=== PATIENT | female | born 1985 | race Two or more races ===

== ENCOUNTER 2024-02-09 14:30 | Emergency (ER) | payer OTHER ==
[~2024-02-09] VITALS: Ht 160 cm; Wt 72.6 kg
[2024-02-09] MEDS ORDERED: GUAIFENESIN/CODEINE 5 ML LIQUID UDC ONE (14:59)
[2024-02-09] MEDS: GUAIFENESIN/CODEINE 5 ML LIQUID UDC PO ONE (15:01)
[2024-02-09 15:11] LABS: BASOPHILS % (AUTO) 0.5 % (0.0-2.0); EOSINOPHILS # (AUTO) 0.5 K/uL (0.0-0.7); EOSINOPHILS % (AUTO) 6.7 % (0.0-7.0); HEMATOCRIT 34.2 % (31.2-41.9); HEMOGLOBIN 11.4 g/dL (10.9-14.3); LYMPHOCYTES # (AUTO) 0.7 K/uL (0.8-4.8); LYMPHOCYTES % (AUTO) 10.4 % (20.5-51.5); MEAN CORPUSCULAR HGB CONC 33 g/dL (32.3-35.6); MEAN CORPUSCULAR VOLUME 89.9 fL (75.5-95.3); MONOCYTES # (AUTO) 0.9 K/uL (0.1-1.30); NEUTROPHILS % (AUTO) 69.4 % (38.5-71.5); PLATELET COUNT (AUTO) 342 K/uL (179-408); RED BLOOD CELL COUNT(AUTO) 3.81 MIL/uL (3.63-4.92); RED CELL DISTRIBUTION WIDTH 13.5 % (12.3-17.7); WHITE BLOOD COUNT (AUTO) 7.2 K/uL (3.8-11.8)
[2024-02-09 15:13] LABS: DIFFERENTIAL COMMENT 1
[2024-02-09 15:16] LABS: CALCIUM 8.5 mg/dL (8.5-10.1); CREATININE 0.7 mg/dL (0.6-1.3); POTASSIUM 3.7 mmol/L (3.5-5.1)
[2024-02-09] MEDS ORDERED: MOME17SP BNOSTRILS (15:17)
[2024-02-09] MEDS ORDERED: [UNRECOGNIZED DRUG - CODE] PO (15:17)
[2024-02-09 15:27] VITALS: BP 128/65; TEMP 98.6; O2SAT 99
[2024-02-10] MEDS ORDERED: TRAM50TA2 PO (18:28)
[2024-02-10] MEDS ORDERED: DOXY100T2 PO (18:28)
[2024-02-10] MEDS ORDERED: METO-295 PO (18:28)
[2024-02-10] MEDS ORDERED: IBUP-1955 PO (18:28)
== END 2024-02-09 15:27 | disposition home or self-care (01) ==
LOC: ER 14:31
DX: J06.9 Acute upper respiratory infection, unspecified (principal); B97.89 Other viral agents as the cause of diseases classified elsewhere; Z79.51 Long term (current) use of inhaled steroids
CPT/HCPCS: 36415; 71045; 85025; A4606; A4663

== ENCOUNTER 2024-02-10 17:04 | Emergency (ER) | payer OTHER ==
[~2024-02-10] VITALS: Ht 152.4 cm; Wt 72.6 kg
[~2024-02-10 17:04] MED LIST: MOME17SP BNOSTRILS; [UNRECOGNIZED DRUG - CODE] PO
[2024-02-10 17:43] LABS: BASOPHILS % (AUTO) 0.3 % (0.0-2.0); DIFFERENTIAL COMMENT 1; EOSINOPHILS % (AUTO) 0.3 % (0.0-7.0); HEMATOCRIT 35.9 % (31.2-41.9); HEMOGLOBIN 12.1 g/dL (10.9-14.3); LYMPHOCYTES # (AUTO) 1.2 K/uL (0.8-4.8); MEAN CORPUSCULAR HEMOGLOBIN 30.1 uug (24.7-32.8); MEAN CORPUSCULAR HGB CONC 34 g/dL (32.3-35.6); MEAN CORPUSCULAR VOLUME 89.2 fL (75.5-95.3); MONOCYTES # (AUTO) 0.8 K/uL (0.1-1.30); MONOCYTES % (AUTO) 13.7 % (0.0-11.0); NEUTROPHILS # (AUTO) 3.9 K/uL (1.8-8.9); NEUTROPHILS % (AUTO) 65.7 % (38.5-71.5); PLATELET COUNT (AUTO) 293 K/uL (179-408); RED BLOOD CELL COUNT(AUTO) 4.02 MIL/uL (3.63-4.92); RED CELL DISTRIBUTION WIDTH 12.8 % (12.3-17.7)
[2024-02-10] MEDS: IV NORMAL SALINE 1000 ML BAG IV ONE (17:47)
[2024-02-10 17:48] LABS: CALCIUM 8.6 mg/dL (8.5-10.1); CARBON DIOXIDE 24 mmol/L (21-32); CHLORIDE 99 mmol/L (98-107); CREATININE 0.9 mg/dL (0.6-1.3); GLUCOSE 98 mg/dL (74-106); POTASSIUM 3.3 mmol/L (3.5-5.1); SODIUM SERUM 137 mmol/L (136-145); UREA NITROGEN, BLOOD 7 mg/dL (7-18)
[2024-02-10] MEDS ORDERED: ACETAMINOPHEN 500 MG TABLET ONE (17:50)
[2024-02-10] MEDS ORDERED: METOCLOPRAMIDE HCL 10 MG/2 ML VIAL ONE (17:50)
[2024-02-10] MEDS: METOCLOPRAMIDE HCL 10 MG/2 ML VIAL IV ONE (17:52)
[2024-02-10 17:54] LABS: ALANINE AMINOTRANSFERASE 20 U/L (14-59); ALBUMIN 3.8 g/dL (3.4-5.0); ALKALINE PHOSPHATASE 59 U/L (50-136); ASPARTATE AMINOTRANSFERASE 11 U/L (15-37); BILIRUBIN,DIRECT < 0.1 mg/dL (0.0-0.2); BILIRUBIN,TOTAL 0.3 mg/dL (0.2-1.0); TOTAL PROTEIN, SERUM 8.1 g/dL (6.4-8.2)
[2024-02-10] MEDS: ACETAMINOPHEN 500 MG TABLET PO ONE (17:56)
[2024-02-10] MEDS: IV NORMAL SALINE 500 ML BAG IV ONE (18:17)
[2024-02-10] MEDS: KETOROLAC TROMETHAMINE 30 MG INJ IVP ONE (18:23)
[2024-02-10] MEDS ORDERED: IBUP-1955 PO (18:28)
[2024-02-10] MEDS ORDERED: METO-295 PO (18:28)
[2024-02-10] MEDS ORDERED: TRAM50TA2 PO (18:28)
[2024-02-10] MEDS ORDERED: DOXY100T2 PO (18:28)
[2024-02-10 19:11] VITALS: BP 110/58; TEMP 98.8; O2SAT 99
== END 2024-02-10 19:12 | disposition home or self-care (01) ==
LOC: ER 17:46
DX: J06.9 Acute upper respiratory infection, unspecified (principal); B97.89 Other viral agents as the cause of diseases classified elsewhere; R94.31 Abnormal electrocardiogram [ECG] [EKG]; R50.9 Fever, unspecified; Z79.51 Long term (current) use of inhaled steroids; Z20.822 Contact with and (suspected) exposure to COVID-19; Z88.7 Allergy status to serum and vaccine
CPT/HCPCS: 99285; 96374; 71045; 96361; 96375; 87426; 87804 ×2; 80076; 80048; 85025; 87040; 36415; 93005; 83605; J1885; J2765; J7040; A4606; A4663; A9150